=== PATIENT | male | born 1965 | race Caucasian/White ===

== ENCOUNTER 2018-12-13 11:46 | Emergency (ER) | payer BC ==
--- NOTE | 2018-12-13 11:58 | ED ---
Dizziness - HPI Summary HPI Summary: This patient is a 53 year old male presenting to [facility] with a chief complaint of dizziness at 1010 this date. He states "things are moving real slow", that when he turns his head his vision takes a second to catch up to his movement. He states he has had a cold for 2 weeks. He reports nausea. The patient has a Hx of diabetes and initially thought he may have had too much insulin and too little food, but his symptoms persisted after eating. - History Of Current Complaint Stated Complaint: DIZZY PER EMS Time Seen by Provider: 12/13/18 11:50 Hx Obtained From: Patient Character: Dizzy Associated Signs And Symptoms: Positive: Nausea - Risk Factors Cardiac Risk Factors: Diabetes - Allergies/Home Medications Allergies/Adverse Reactions: Allergies Allergy/AdvReac Type Severity Reaction Status Date / Time MS Penicillins [Penicillins] Allergy Unknown Unknown Verified 04/14/14 07:57 Reaction Details MS Codeine [Codeine] Allergy Rash And Verified 04/14/14 07:57 Itching Home Medications: Home Medications Insulin NPH Human Isophane [Humulin N Kwikpen] 45 unit SUBCUT BID 12/13/18 [ History Confirmed 12/13/18] Insulin Regular, Human [Humulin R U-500 Kwikpen] 45 unit SUBCUT BID 12/13/18 [ History Confirmed 12/13/18] Irbesartan/Hydrochlor 150/12.5 [Irbesartan/Hydrochlorothi 150-12.5 mg] 1 tab PO DAILY 12/13/18 [History Confirmed 12/13/18] Varicella-Zoster Ge/As01b/Pf [Shingrix] 50 mcg IM ONCE 12/13/18 [History Confirmed 12/13/18] PMH/Surg Hx/FS Hx/Imm Hx Endocrine/Hematology History: Reports: Hx Diabetes EENT History: Denies: Hx Deafness - Family History Known Family History: Positive: Diabetes - Social History Alcohol Use: Occasionally Substance Use Type: Reports: None Smoking Status (MU): Never Smoked Tobacco Review of Systems Positive: Nausea Psychological: Other - Dizziness All Other Systems Reviewed And Are Negative: Yes Physical Exam - Summary Physical Exam Summary: Appearance: The patient is well-nourished in no acute distress and in no acute pain. Skin: The skin is warm and dry, and skin color reflects adequate perfusion. HEENT: The head is normocephalic and atraumatic. The pupils are equal and reactive. The conjunctivae are clear and without drainage. Nares are patent and without drainage. Mouth reveals moist mucous membranes, and the throat is without erythema and exudate. The external ears are intact. The ear canals are patent and without drainage. The tympanic membranes are intact. Neck: The neck is supple with full range of motion and non-tender. There are no carotid bruits. There is no neck vein distension. Respiratory: Chest is non-tender. Lungs are clear to auscultation and breath sounds are symmetrical and equal. Cardiovascular: Heart is regular rate and rhythm. There is no murmur or rub auscultated. There is no peripheral edema and pulses are symmetrical and equal. Abdomen: The abdomen is soft and non-tender. There are normal bowel sounds heard in all four quadrants and there is no organomegaly palpated. Musculoskeletal: There is no back tenderness noted. Extremities are non-tender with full range of motion. There is good capillary refill. There is no peripheral edema or calf tenderness elicited. Neurological: Patient is alert and oriented to person, place and time. The patient has symmetrical motor strength in all four extremities. Cranial nerves are grossly intact. Deep tendon reflexes are symmetrical and equal in all four extremities. Psychiatric: The patient has an appropriate affect and does not exhibit any anxiety or depression. Triage Information Reviewed: Yes Vital Signs On Initial Exam: Temp Pulse Resp BP Pulse Ox 98.6 F 109 18 145/98 96 12/13/18 11:51 12/13/18 11:51 12/13/18 11:51 12/13/18 11:51 12/13/18 11:51 Vital Signs Reviewed: Yes Procedures - Sedation Patient Received Moderate/Deep Sedation with Procedure: No Diagnostics - Laboratory Result Diagrams: 12/13/18 12:13 12/13/18 12:13 Lab Statement: Any lab studies that have been ordered have been reviewed, and results considered in the medical decision making process. - CT Brain CT Interpretation Completed By: Radiologist Summary of CT Findings: No acute intracranial pathology. ED Provider has reviewed this report. CTA Head CT Interpretation Completed By: Radiologist Summary of CT Findings: 1. Sinus mucosal inflammatory disease with air fluid levels in the maxillary sinuses bilaterally in the correct clinical setting. This may represent acute sinusitis. 2. No internal carotid artery stenosis by nascet criteria. 3. No aneurysm, vascular malformation, occlusion, or stenosis of the visualized intracranial circulation. ED Provider has reviewed this report. - EKG 1209 Cardiac Rate: Tachycardia - 103 BPM EKG Rhythm: Sinus Tachycardia Summary of EKG Findings: Nonspecific ST-T changes in the inferior leads. ED Physician has reviewed and interpreted this report. Dizzy Course/Dx - Course Course Of Treatment: Mr. Mckinnon presented with the sudden onset of vertigo a couple hours prior to presentation. He has had URI type symptoms for a week or 2 but otherwise remains been okay. He is diabetic. His exam is generally unremarkable. He was monitored while labs and CT were obtained. These were unremarkable and I consulted with Dr. Turner who recommended CTA of the head and neck. That returned positive only for some sinusitis and Dr. Turner felt that he was most likely a peripheral vertigo. I will treat him with antibiotics and decongestants encourage close follow-up. - Diagnoses Provider Diagnoses: Vertigo, Sinusitis Discharge ED - Sign-Out/Discharge Documenting (check all that apply): Patient Departure - Discharge - Discharge Plan Condition: Stable Disposition: HOME Prescriptions: Clindamycin Cap(NF) [Clindamycin Cap 300 mg Cap(NF)] 300 mg PO Q6H #40 cap Clindamycin Cap(NF) [Clindamycin Cap 300 mg Cap(NF)] 300 mg PO Q6H #40 cap Fexofenadine/Pseudoephedrine [Ani-D 24 Hour Tablet] 1 each PO DAILY #10 tab.er.24h Fexofenadine/Pseudoephedrine [Ani-D 24 Hour Tablet] 1 each PO DAILY #10 tab.er.24h Patient Education Materials: Sinusitis (ED), Vertigo (ED) Referrals: Gorge Arndt DO [Primary Care Provider] - Additional Instructions: Return to ED with new or worsening symptoms. - Billing Disposition and Condition Condition: STABLE Disposition: Home - Attestation Statements Document Initiated by Tommy: Yes Documenting Scribe: Doni Reynolds Provider For Whom Tommy is Documenting (Include Credential): Amari Leo MD Scribe Attestation: Doni Stark, rgibed for Amari Leo MD on 12/13/18 at 1944. Scribe Documentation Reviewed: Yes Provider Attestation: The documentation as recorded by the rgibe, Doni Reynolds accurately reflects the service I personally performed and the decisions made by me, Amari Leo MD Status of Tommy Document: Viewed
[2018-12-13 12:25] LABS: ABS Eosinophils 0.1 10^3/ul (0-0.6); ABS Lymphocytes 1.2 10^3/ul (1.0-4.8); ABS Monocytes 0.4 10^3/ul (0-0.8); ABS Neutrophils 5.4 10^3/ul (1.5-7.7); Eosinophil % 1.9 %; Hematocrit 46 % (42-52); Hemoglobin 15.7 g/dL (14.0-18.0); Mean Corpuscular HGB Conc 35 g/dL (31-36); Mean Corpuscular Hemoglobin 30 pg (27-31); Mean Corpuscular Volume 88 fL (80-94); Mean Platelet Volume 8.1 fL (7.4-10.4); Platelet Count 223 10^3/uL (150-450); Red Blood Count 5.17 10^6 /uL (4.18-5.48); Red Cell Distribution Width 13 % (10-15); White Blood Count 7.1 10^3/uL (3.5-10.8)
[2018-12-13] MEDS ORDERED: Meclizine TAB* 12.5 MG PO ONE (12:30)
[2018-12-13 12:35] LABS: INR 0.96 (0.82-1.09)
[2018-12-13 12:36] LABS: Albumin 4.4 g/dL (3.2-5.2); Albumin/Globulin Ratio 1.4 (1-3); BUN/Creatinine Ratio 19.1 (8-20); Calcium 9.2 mg/dL (8.6-10.3); EGFR Non-African American 84.3 (>60); Globulin 3.1 g/dL (2-4); Potassium 4.4 mmol/L (3.5-5.0); Total Bilirubin 0.5 mg/dL (0.2-1.0); Total Protein 7.5 g/dL (6.4-8.9)
[2018-12-13 12:38] LABS: Troponin I 0.01 ng/mL (<0.04)
[2018-12-13] MEDS ORDERED: Iodixanol* (CONTRAST) 320 MG/ML 100 ML SDV IV ONE (14:34)
[2018-12-13 16:59] VITALS: BP 136/99
--- NOTE | 2018-12-13 16:59 | CONS ---
NEUROLOGY CONSULTATION: DATE OF CONSULT: 12/13/18 - EMERGENCY DEPT. REFERRING PROVIDER: Dr. Amari Leo. LOCATION: He is in the emergency room. CHIEF COMPLAINT: Dizziness, nausea. 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 He finds it hard to describe. He felt a pressure sensation through most of his body including his head and is down to his knees. He felt some tingling in his hands. He felt nauseous. He did not describe any room spinning. He felt like everything was moving in slow motion. He felt perhaps he might be hypoglycemic and so he made it to the back of the store although he stated he was unsteady on his feet. He ate a glazed donut. His father called 911. He never lost consciousness. By the time the ambulance attendance got there, his fingerstick blood sugar was about 200. He did not breakout in a sweat. There was no chest pain or shortness of breath. He feels back to normal currently. He did receive some meclizine here in the emergency room, however. There is no history of seizures or cerebrovascular disease. He has had diabetes for 30 years. He has had episodes of hypoglycemia before with loss of consciousness. PAST MEDICAL HISTORY: His past medical history is essentially notable for his diabetes, otherwise good health. MEDICATIONS: At home consist of: 1. Insulin morning and night. 2. Irbesartan/hydrochlorothiazide 150/12.5. REVIEW OF SYSTEMS: Notable for cough for about 2 to 3 weeks. He has not had any fevers that he is aware of. He has not had any chills or sweats. He had a concussive head injury many years ago where he lost his memory for a while. There is no problems with chest pain and no history of heart disease. He does not feel faint. He does not feel short of breath. The numbness in his hands resolved. ALLERGIES: He is allergic to PENICILLIN and CODEINE. SOCIAL HISTORY: He is a nonsmoker, does not drink alcohol on a regular basis. 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 PHYSICAL EXAMINATION: On examination, he is an obese gentleman lying in the hospital stretcher. Temperature is 98.6, heart rate is running 100 to 110 on the monitor in sinus. Respiratory rate is 20 and oxygen saturation is 96% on room air. Blood pressure is running about 145/98. Skin is warm and dry. Neurological Exam: Pupils react equally from 3 to 2 mm. Eye movements are normal and there is no nystagmus. Visual mendoza are full to confrontation. Funduscopic exam reveals sharp discs bilaterally. Facial musculature is symmetric. Facial sensation to light is intact and symmetric. Palate and tongue appeared normal and there is no dysarthria. External auditory canals appeared normal on the right, but there is cerumen in the left one. Motor exam reveals normal strength in the limbs proximally and distally. There is no drift. Bejdjv-ay-[id number] and lyym-gz-[id number] maneuvers are normal bilaterally. There is no sustention or action tremor. Sensory exam in the limbs is intact to light touch and vibration. Reflexes are symmetrical. There is absent ankle reflexes. Plantar responses are flexor bilaterally. He is alert and oriented and a pretty good historian. Memory seems intact and language is fluent. DIAGNOSTIC STUDIES/LABORATORY DATA: Includes a CT scan of the brain which I are reviewed and appears to be a normal CT scan. It was interpreted as normal by the radiologist. His CBC is within normal limits as is his chemistry profile other than the glucose of 310. Sodium is borderline of 134. Troponin is 0.01. Liver enzymes are normal. IMPRESSION: Impression is that of an episode of nausea, confusion and some paraesthesias of very sudden onset. Though hypoglycemia is possible, but was not documented. The sudden onset makes the vascular etiology a possibility. He should have a CT angiogram of the head and neck. Currently he is somewhat tachycardic and he might need further evaluation for that if it does not subside. I discussed my impression with Dr. Leo. [id number]/CPS #: [id number] [place]
== END 2018-12-13 16:54 | disposition home or self-care (01) ==
LOC: ED 11:46
DX: R42 Dizziness and giddiness (principal); J32.9 Chronic sinusitis, unspecified; E11.9 Type 2 diabetes mellitus without complications; Z79.4 Long term (current) use of insulin; Z88.0 Allergy status to penicillin; Z88.5 Allergy status to narcotic agent; Z79.899 Other long term (current) drug therapy
CPT/HCPCS: 36415; 70450; 70496; 70498; 80053; 83605; 84484; 85025; 85610; 93005; 99283; A9270-GY; Q9967